=== PATIENT | female | born 1975 | race African-American/Black ===

== ENCOUNTER 2016-12-05 20:58 | Emergency (ER) | payer OTHER ==
[2016-12-06] MEDS ORDERED: WELLXL300 PO (01:40)
[2016-12-06] MEDS ORDERED: TOPAMAX50 MG PO (01:40)
[2016-12-06] MEDS ORDERED: FLAG500TAB PO (03:26)
[2016-12-07] MEDS ORDERED: ASAB PO (16:06)
[2016-12-07] MEDS ORDERED: HABIT21 TOP (16:09)
[2016-12-07] MEDS ORDERED: PERCOCET 7.5/321 TAB PO (16:15)
[2016-12-07] MEDS ORDERED: X25 PO (16:17)
== END 2016-12-05 22:58 | disposition left against medical advice (07) ==
LOC: ER 20:58
DX: Z53.21 Procedure and treatment not carried out due to patient leaving prior to being seen by health care provider (principal)
CPT/HCPCS: 82962; 93005